=== PATIENT | female | born 1945 | race Caucasian/White ===

== ENCOUNTER → 2019-03-29 11:50 | Outpatient (CLI) | payer MEDICARE, SELFPAY ==
[2019-03-29 13:40] LABS: 24HR. Urine Creatinine 1.16 g/24 HR (0.70-1.90)
[2019-03-29 13:41] LABS: 24HR. UA Prot. Total Volume 1725 mL; Urine Protein (24 Hour) < 6.0 mg/dL (<11.9)
[2019-03-29 14:22] LABS: Anion Gap 4 (5-15); BUN 40 mg/dL (7-18); BUN/Creat Ratio 21.1 RATIO (10-20); Calcium,Total 9.2 mg/dL (8.5-10.1); Chloride 102 mmol/L (98-107); EST Glomerular Filtration Rate 28 mL/min (>60); Est Glom Filt Rate - Afr Amer 33 mL/min (>60); Glucose 158 mg/dL (74-106); Potassium 5.2 mmol/L (3.5-5.1); Sodium Level 136 mmol/L (136-145)
[2019-03-29 14:25] LABS: Vitamin D,25 Hydroxy 46.5 ng/mL (29.95-100.01)
[2019-03-29 14:26] LABS: PTHIN 148.5 pg/mL (18.4-80.1)
[2019-03-30 16:08] LABS: PROEL- A/G Ratio 0.8 (0.7-1.7); PROEL- Albumin 2.9 g/dL (2.9-4.4); PROEL- Alpha-1 Globulin 0.3 g/dL (0.0-0.4); PROEL- Alpha-2 Globulin 0.8 g/dL (0.4-1.0); PROEL- Beta Globulin 1.3 g/dL (0.7-1.3); PROEL- Gamma Globulin 1.2 g/dL (0.4-1.8); PROEL- Globulin, Total 3.7 g/dL (2.2-3.9); PROEL- TOTAL PROTEIN 6.6 g/dL (6.0-8.5)
== END ==
PROVIDERS: Family Provider Preventive Medicine Occupational Medicine; PCP Preventive Medicine Occupational Medicine; Referring Provider Internal Medicine; Visit Provider Internal Medicine
DX: N18.3 Chronic kidney disease, stage 3 (moderate) (principal)
CPT/HCPCS: 36415; 80048; 81050; 82306; 82570; 83970; 84100; 84165

== ENCOUNTER → 2019-04-16 09:44 | Outpatient (CLI) | payer MEDICARE, SELFPAY ==
--- NOTE | 2019-04-16 09:47 | US_ITS ---
STUDY: RENAL ULTRASOUND - COMPLETE REASON FOR EXAM: Female, 73 years old. CKD STAGE 3 TECHNIQUE: Ultrasound evaluation of the kidneys was performed with real-time and static quiroga-scale imaging. COMPARISON: None. FINDINGS: RIGHT KIDNEY: Normal location of the right kidney, which is normal in size. The right kidney measures 9.5 x 6.2 x 4.8 cm. There is a normal cortex of the right kidney. The renal cortex measures 1.0 cm. There is no right renal mass or cyst. There are no right renal calculi. There is no right hydronephrosis. DISTAL RIGHT URETER: There is non-visualization of the distal right ureter. There is no demonstrated right ureterovesical junction calculus. There is no demonstrated right ureteral jet. LEFT KIDNEY: Normal location of the left kidney, which is normal in size. The left kidney measures 10.6 x 3.8 x 4.3 cm. There is a normal cortex of the left kidney. The renal cortex measures 1.3 cm. There is no left renal mass or cyst. There are no left renal calculi. There is no left hydronephrosis. DISTAL LEFT URETER: There is non-visualization of the distal left ureter. There is no demonstrated left ureterovesical junction calculus. There is a visualized left ureteral jet. BLADDER: The urinary bladder is not fully distended. There is diffuse thickening of urinary bladder wall, nonspecific given the decompression. There is no demonstrated mass within the urinary bladder. There are no demonstrated bladder calculi. US/Kidney and Bladder IMPRESSION: Normal ultrasound of the kidneys. Decompressed urinary bladder with thickening of the wall, nonspecific. Cannot exclude cystitis, correlation with urinalysis recommended if clinically indicated. Incidental note is made of enlarged endometrium up 21.1 mm concerning for endometrial neoplasm given patient''s age. Further characterization with ultrasound of the pelvis along with [employer] consultation recommended.. Electronically Signed: Janice Haywood MD at 1:34 EST , Service support ,
== END ==
PROVIDERS: PCP Preventive Medicine Occupational Medicine; Referring Provider Internal Medicine; Visit Provider Internal Medicine
DX: N18.3 Chronic kidney disease, stage 3 (moderate) (principal)
CPT/HCPCS: 76770

== ENCOUNTER → 2019-05-12 11:05 | Outpatient (CLI) | payer MEDICARE, SELFPAY ==
--- NOTE | 2019-05-12 11:10 | US_ITS ---
STUDY: ULTRASOUND OF THE FEMALE PELVIS - COMPLETE REASON FOR EXAM: Female, 73 years old. Postmenopausal bleeding LMP: Unknown. TECHNIQUE: Transvaginal TECHNICAL QUALITY: Adequate. COMPARISON: None. FINDINGS: The uterus is anteverted and is in a midline position. The uterus measures 6.2 x 3.8 x 4.5 cm. Normal uterine cervix. The endometrium measures 17.4 mm in thickness, and is hyperechoic. This is abnormal and needs biopsy for exclusion of endometrial carcinoma. There is no demonstrated endometrial mass. There are calcified uterine fibroids, largest measures 1.8 x 2.0 x 1.0 cm I.U.D. - The patient does not have an I.U.D. Both ovaries previously removed There is no fluid in the cul-de-sac. The bladder is sonographically normal US/Transvaginal Non- IMPRESSION: Abnormally thickened endometrium at 17.4 mm. This should be considered endometrial carcinoma until proven otherwise, biopsy recommended Multiple calcified small uterine fibroids Electronically Signed: Dhiraj Loya MD at 12:56 EST , Service support ,
== END ==
PROVIDERS: PCP Preventive Medicine Occupational Medicine; Referring Provider Preventive Medicine Occupational Medicine; Visit Provider Preventive Medicine Occupational Medicine
DX: N93.8 Other specified abnormal uterine and vaginal bleeding (principal)
CPT/HCPCS: 76830

== ENCOUNTER 2019-05-20 14:04 | Outpatient (RCR) | payer MEDICARE, SELFPAY | END 2019-05-22 23:59 | LOC: DC 14:04 | PROVIDERS: PCP Preventive Medicine Occupational Medicine; Visit Provider Internal Medicine Nephrology | DX: Z71.3 Dietary counseling and surveillance (principal); E11.22 Type 2 diabetes mellitus with diabetic chronic kidney disease; N18.3 Chronic kidney disease, stage 3 (moderate) | CPT/HCPCS: G0108 ==

== ENCOUNTER 2019-05-24 14:06 | Outpatient (RCR) | payer MEDICARE, SELFPAY | END 2019-06-22 23:59 | LOC: DC 14:06 | PROVIDERS: PCP Preventive Medicine Occupational Medicine; Visit Provider Internal Medicine Nephrology | DX: Z71.3 Dietary counseling and surveillance (principal); E11.22 Type 2 diabetes mellitus with diabetic chronic kidney disease; N18.3 Chronic kidney disease, stage 3 (moderate) | CPT/HCPCS: 97802 ==

== ENCOUNTER → 2019-06-02 10:05 | Outpatient (CLI) | payer MEDICARE, SELFPAY ==
[2019-06-02 11:03] LABS: Anion Gap 7 (5-15); BUN 40 mg/dL (7-18); BUN/Creat Ratio 20.3 RATIO (10-20); Calcium,Total 9.6 mg/dL (8.5-10.1); Chloride 106 mmol/L (98-107); Creatinine, Serum 1.97 mg/dL (0.55-1.02); EST Glomerular Filtration Rate 26 mL/min (>60); Est Glom Filt Rate - Afr Amer 32 mL/min (>60); Glucose 133 mg/dL (74-106); Phosphorus 4.1 mg/dL (2.5-4.9); Potassium 4.1 mmol/L (3.5-5.1); Sodium Level 140 mmol/L (136-145)
[2019-06-02 11:05] LABS: Vitamin D,25 Hydroxy 69.3 ng/mL
== END ==
PROVIDERS: PCP Preventive Medicine Occupational Medicine; Referring Provider Internal Medicine; Visit Provider Internal Medicine
DX: N18.3 Chronic kidney disease, stage 3 (moderate) (principal); N25.81 Secondary hyperparathyroidism of renal origin
CPT/HCPCS: 36415; 80048; 82306; 83970; 84100

== ENCOUNTER → 2019-06-03 16:23 | Outpatient (CLI) | payer MEDICARE, SELFPAY ==
[2019-06-03 17:07] LABS: Color, Urine Yellow (Yellow); Glucose, Dipstick Normal (Normal); Ketone-Dipstick Negative (Negative); Leukocyte Esterase-Dipstick Negative /ul (Negative); Nitrite-Dipstick Negative (Negative); Occult Blood-Urine Negative /ul (Negative); Protein-Dipstick Negative (Negative); Urine Bilirubin Dipstick Negative (Negative); Urine Clarity Clear (Clear); Urine Urobilinogen Normal (Normal)
[2019-06-03 17:15] LABS: Protein, Urine (Random) 12.7 mg/dL (<11.9); Protein:Creat Ratio 95 mg/g CRE (0-200)
== END ==
PROVIDERS: PCP Preventive Medicine Occupational Medicine; Visit Provider Internal Medicine
DX: N18.3 Chronic kidney disease, stage 3 (moderate) (principal); N25.81 Secondary hyperparathyroidism of renal origin
CPT/HCPCS: 81002; 82570; 84156

== ENCOUNTER 2019-08-12 06:55 | Day surgery (SDC) | payer MEDICARE, SELFPAY ==
--- NOTE | 2019-08-09 16:45 | PCM.HP.BLA ---
History and Physical Date of Admission: 08/09/19 HPI: The patient is a 73 year old female presenting for pre-operative visit. She is scheduled for?Hysteroscopy D&C?with polyp resection?for PMB and endometrial polyp on?08/12/2019. ??Procedure discussed along with risks, benefits and complications. ?Other alternatives discussed for management. Consent form signed??Yes.? PAST MEDICAL HISTORY PAST MEDICAL HISTORY Diagnosis Date ? Arthritis ? ? Diabetes (HCC) ? ? High cholesterol ? ? Hypertension ? ? Kidney disease, chronic, stage III (GFR 30-59 ml/min) (HCC) ? ? ? PAST SURGICAL HISTORY PAST SURGICAL HISTORY Procedure Laterality Date ? CATARACT EXTRACTION HX ? ? ? FINGER SURGERY HX ? ? ? OOPHORECTOMY PARTIAL OR TOTAL ? 08/1979 ? ? CURRENT MEDICATIONS Current Outpatient Medications Medication Sig Dispense Refill ? atenolol (TENORMIN) 50 mg tablet Take 50 mg by mouth once daily. ? ? ? ACCU-CHEK GREGORY PLUS TEST STRP test strip ? desvenlafaxine ER (PRISTIQ) 50 mg 24 hr tablet TAKE 1 TABLET BY MOUTH ONCE DAILY ON Friday AND FRIDAY ? ? ? furosemide (LASIX) 40 mg tablet Take 40 mg by mouth once daily. ? ? ? NOVOLOG MIX 70-30 U-100 INSULN 100 unit/mL (70-30) injection INJECT 5 UNITS SUBCUTANEOUSLY ONCE DAILY BEFORE A MEAL ? ? ? TOUJEO MAX U-300 SOLOSTAR 300 unit/mL (3 mL) inpn ? levothyroxine (SYNTHROID) 150 mcg tablet ? lisinopril (ZESTRIL, PRINIVIL) 20 mg tablet Take 20 mg by mouth once daily. ? ? ? VELTASSA 8.4 gram pwpk MIX 1 PACKET INTO WATER. DRINK PO D. TAKE 3 HOUR BEFORE OR 3 HOURS AFTER OTHER MEDICATION ? ? ? simvastatin (ZOCOR) 40 mg tablet Take 40 mg by mouth daily at bedtime. ? ? ? aspirin 81 mg chewable tablet Take 81 mg by mouth once daily. ? ? ? No current facility-administered medications for this visit.? ? ALLERGIES:?Amoxicillin; Nut - Unspecified ? PERSONAL HISTORY:? SOCIAL HISTORY Social History ? Tobacco Use ? Smoking status: Former Smoker ? Smokeless tobacco: Never Used Substance Use Topics ? Alcohol use: Not Currently ? Drug use: Never ? FAMILY HISTORY:? FAMILY HISTORY FAMILY HISTORY Problem Relation Age of Onset ? Cancer Son 36 ?stomach ? REVIEW OF SYMPTOMS: GENERAL: denies fevers or chills ENDOCRINOLOGY: has not been on steroids Cardiology : denies palpitations or chest pain Respiratory: denies SOB or cough Hematology: denies history of prolonged bleeding or easy bruising or VTE Allergy: Denies history of personal or family history of allergy to anesthesia ? ? PHYSICAL EXAMINATION: ? VITALS:?Blood pressure 136/68, pulse 64, resp. rate 16, height 5' 1 (1.549 m), weight 257 lb (116.6 kg). ? GENERAL:??The patient is well nourished, well hydrated in no acute distress. ?, The patient is oriented to time, place, and person. NECK:?Supple. No lynphadenopathy, normal thyroid, no thyromegaly. LUNGS:?Clear to auscultation bilaterally. no wheezes, rhonchi or rales HEART:?Regular rate and rhythm, Normal heart sounds and No murmurs or gallops ? IMPRESSION:?PMB, endometrial polyp ? PLAN:???The risks/benefits/alternatives and personal involved for the planned?hysteroscopy with dilation and curettage and polp resection?were reviewed with the patient. Her questions were answered to her satisfaction and she desires to proceed. ?Consent was signed. ?I reviewed with her postop instructions and expectations. ? ? I have reviewed and updated past medical and surgical history, medications and allergies. This h&P was performed in my office on 08/09/2019.
[2019-08-11 19:28] LABS: Probe Check PASS; SARS-COV-2 DNA by PCR Negative (Negative); Specimen Processing Control PASS
--- NOTE | 2019-08-12 | EMB_PTH ---
PATIENT: ISAEL ZAPIEN ROSEMARIE LOC: [facility] [place] U#:[id number] AGE/SX: 73/F ROOM: RE08/12/[address]: Dr. Kelli Awan MD : 1945 BED: DIS: 08/12/2019 SPEC #: [id number] RECD: 08/12/19 10:07 STATUS: ADRIEN MIRZA #: [id number] HIRAM: 08/12/19 00:[address]: Kelli Awan DEPT: SURGICAL PATHOLOGY RECD BY: Blaze Sofia ENTERED: 08/12/19 10:07 SP TYPE: ENDOM BX/C DESTINI DR: Dr. John Morfin, DO Tissues: Endometrium, NOS Procedures: Surgery Specimen Level IV HEADER OPERATION: Hysteroscopy, D & C Symphion PRE-OP DIAGNOSIS: PMB, endometrial polyp TISSUE SUBMITTED: Endometrial curettings MICROSCOPIC DIAGNOSIS Endometrial curettings: Simple cystic endometrial hyperplasia without atypia. Fragments of myometrium. See comment. SJ:nikos 08/13/19 COMMENT The specimen also shows multiple fragments of polyp with area of infarction may represent fragments of infarcted endometrial polyp. Numerous blood clots are also noted. Correlation with clinical findings and appropriate follow up are necessary. Case has been reviewed in consultation with Dr. Lovell who concurs with the above diagnosis. IDC:AM MICROSCOPIC DESCRIPTION Slides are reviewed. GROSS DESCRIPTION Received in fixative is one container labeled with the patient's name and designated endometrial curettings. The specimen consists of multiple fragments of pink hemorrhagic soft tissue that in aggregate measure 5 x 3 x 0.6 cm. The entire specimen is submitted in four cassettes. / LILLY:nikos 08/12/19 TC:5 CPT: 13099
[2019-08-12 07:20] LABS: Bedside Glucose 144 mg/dL (70-110)
[2019-08-12 07:27] VITALS: BP 141/77; PULSE 64; RESP 16; TEMP 36.4; O2SAT 99; BMI 48.9
[2019-08-12] MEDS: Lactated Ringers 1,000 ML 100 ML IV (07:43)
[2019-08-12 08:26] LABS: Hemoglobin 9.7 g/dL (12.0-15.0); Mean Corp Hgb Conc 30.3 g/dL (32-36); Mean Corpuscular Hgb 25.1 pg (27.0-32.0); Mean Corpuscular Volume 82.9 fL (81-99); Mean Platelet Vol. 9.1 fl (6.2-12.0); Platelet Count 215 K/mm3 (150-450); RBC Distribution Width CV 15.9 % (11.6-14.6); RBC Distribution Width SD 48.3 fl (35.1-43.9); Red Blood Count 3.86 M/mm3 (4.2-5.4); White Blood Count 8.2 K/mm3 (4.4-11.0)
[2019-08-12 08:39] LABS: Anion Gap 6 (5-15); BUN 39 mg/dL (7-18); BUN/Creat Ratio 19.7 RATIO (10-20); Calcium,Total 9.4 mg/dL (8.5-10.1); Chloride 108 mmol/L (98-107); Creatinine, Serum 1.98 mg/dL (0.55-1.02); EST Glomerular Filtration Rate 26 mL/min (>60); Est Glom Filt Rate - Afr Amer 32 mL/min (>60); Glucose 140 mg/dL (74-106); Potassium 4.7 mmol/L (3.5-5.1); Sodium Level 141 mmol/L (136-145)
--- NOTE | 2019-08-12 09:08 | DCINST_ITS ---
Discharge Diet: No Restrictions Discharge Activity: Return to Normal Activity, May Shower, May Take a Tub Bath - in 2 weeks. May shower in (days): 1 May resume sexual activity in: 2 weeks Call your doctor if your incision/area has: Sudden Increased Bleeding, Foul Smelling Discharge Call your doctor if you observe: Fever of 101 or Higher Allergies/Adverse Reactions: Allergies amoxicillin Allergy (Verified 08/12/19 07:22) PT UNSURE OF REACTION walnut Allergy (Verified 08/12/19 07:22) Rash Medications to take at Discharge Acetaminophen [Tylenol Arthritis] 650 mg PO PRN PRN 08/09/19 Aspirin [Aspir 81] 81 mg PO DAILY 08/09/19 Atenolol [Tenormin (beta shreya)] 50 mg PO DAILY 08/09/19 Bisacodyl [Dulcolax] 5 mg PO DAILY 08/09/19 Cholecalciferol (VIT D3) [Vitamin D3] 5,000 unit PO DAILY 08/09/19 Desvenlafaxine Succinate [Desvenlafaxine Succinate ER] 50 mg PO SUWEFR 08/09/19 Furosemide 40 mg PO DAILY 08/09/19 Insulin Aspart Protam & Aspart [Novolog Mix 70-30 Vial] 10 unit SQ BIDCM 08/09/19 Insulin Glargine,Hum.rec.anlog [Toujeo Max Solostar] 110 unit SQ LUNCH 08/09/19 L.acidoph,Paracasei, B.lactis [Probiotic] 1 ea PO DAILY 08/09/19 Levothyroxine [Synthroid] 150 mcg PO DAILY 08/09/19 Lisinopril 20 mg PO DAILY 08/09/19 Patiromer Calcium Sorbitex [Veltassa] 8.4 gm PO 1700 08/09/19 Simvastatin [Zocor] 40 mg PO QHS 08/09/19 Primary Care Physician: John Morfin DO [Primary Care Provider] - Test Results: Test results from this visit will be discussed in further detail at your follow- up appointment, if applicable. Please Follow Up With: Kelli Awan MD - [phone] When: postop visit- may be virtual in 2-4 weeks or as needed
--- NOTE | 2019-08-12 09:11 | OP.PCM_ITS ---
Report of Operation Date of Procedure: 08/12/19 Pre-Operative Diagnosis: PMB,. thickened endometrium Post-Operative Diagnosis: same + endometrial polyp Surgery/Procedure Performed:: Hysteroscopy D&C with polyp resection storm window installer: None Type of Anesthesia:: MAC/Supplemental/Local Anesthesiologist: Jay Potts Special Medications: none Specimen's removed: endometrial curettings Drains: none Estimated Blood Loss (mL): 10 Fluids Replaced: 800 cc Description of Procedure: The patient was taken to the OR where she was prepped and draped in dorsal lithotomy position. The weighted speculum was placed in the vagina and the anterior lip of the cervix was grasped with a single-tooth tenaculum. A paracervical block was administered with [1% lidocaine with 1-100,000 epinephrine solution]. The cervix was dilated serially with Hegar dilators. The symphion hysteroscope was placed into the uterine cavity and the below findings were noted. Bilateral tubal ostia [were] identified. We noticed that there was some necrotic polypoid appearing material protruding from the cervical loss was grasped with polyp forceps and removed. This was placed on itself and sent to pathology with endometrial curettings. Symphion resection device was readied and inserted. Resection of the entire endometrial polyp and a visual D&C was done of the endometrial cavity. It should be noted that the endometrial cavity appeared studded but not thickened. The instruments were removed from the vagina. The specimen was handed off and sent to pathology. All sponge and needle counts were correct. Vaginal sweep was performed by me. The patient was awakened and taken to the recovery room in stable condition. Hysteroscopic fluid deficit was calculated to be 350 cc of normal saline Paintings: Normal-appearing cervix and vagina. Endometrial cavity with large amount of polypoid material. Endometrial cavity along the anterior and posterior uterine fundus appeared studded. Small calcified lesion on the right. Mid fundus. Grafts/Implants Used: none - Complications none - Admit VTE Documentation VTE Present on Admission: No VTE Mechan Device Prophylaxis: SCD's VTE Pharm Prophylaxis ordered?: No Reason prophylaxis not ordered:: Procedure Not Indicated
[2019-08-12 09:12] VITALS: BP 123/59; BP 141/77; PULSE 69; RESP 16; TEMP 37.1; O2SAT 96
[2019-08-12 09:17] VITALS: BP 134/58; BP 141/77; PULSE 72; RESP 16; O2SAT 98
[2019-08-12 09:22] VITALS: BP 141/77; BP 152/59; PULSE 66; RESP 16; O2SAT 97
[2019-08-12 09:27] VITALS: BP 141/77; BP 144/64; PULSE 64; RESP 16; TEMP 36.7; O2SAT 97
[2019-08-12 10:22] VITALS: BP 141/77
== END 2019-08-12 10:24 | disposition home or self-care (01) ==
LOC: SDC 06:57 → AC 06:57
PROVIDERS: Anesthesiology; PCP Preventive Medicine Occupational Medicine; Referring Provider Obstetrics & Gynecology; Visit Provider Obstetrics & Gynecology
PROC: 0UB98ZZ Excision of Uterus, Via Natural or Artificial Opening Endoscopic (ICD-10-PCS; CPT 58558; principal; 2019-08-12 08:15)
DX: N85.01 Benign endometrial hyperplasia (principal); N95.0 Postmenopausal bleeding; E11.22 Type 2 diabetes mellitus with diabetic chronic kidney disease; I12.9 Hypertensive chronic kidney disease with stage 1 through stage 4 chronic kidney disease, or unspecified chronic kidney disease; N18.3 Chronic kidney disease, stage 3 (moderate); E78.00 Pure hypercholesterolemia, unspecified; M19.90 Unspecified osteoarthritis, unspecified site; Z79.82 Long term (current) use of aspirin; Z79.4 Long term (current) use of insulin; Z79.899 Other long term (current) drug therapy; Z88.0 Allergy status to penicillin; Z87.891 Personal history of nicotine dependence; Z11.59 Encounter for screening for other viral diseases
CPT/HCPCS: 58558; 80048; 82962; 85027; 87635; 88305; C9803; G2023; J7120; J2405; U0004

== ENCOUNTER → 2019-10-07 11:42 | Outpatient (CLI) | payer MEDICARE, SELFPAY ==
[2019-10-07 12:44] LABS: Mucous, Urine 0 SEEN /hpf (<or=2+); Red Blood Cells-Urine 0 SEEN /hpf (0-5)
[2019-10-07 13:44] LABS: Protein, Urine (Random) 8.5 mg/dL (<11.9); Protein:Creat Ratio 87 mg/g CRE (0-200)
[2019-10-07 14:02] LABS: Color, Urine Yellow (Yellow); Glucose, Dipstick Normal (Normal); Ketone-Dipstick Negative (Negative); Leukocyte Esterase-Dipstick Negative /ul (Negative); Nitrite-Dipstick Negative (Negative); Occult Blood-Urine Negative /ul (Negative); Protein-Dipstick Negative (Negative); Urine Bilirubin Dipstick Negative (Negative); Urine Clarity Clear (Clear); Urine Urobilinogen Normal (Normal)
[2019-10-07 14:15] LABS: Anion Gap 2 (5-15); BUN 31 mg/dL (7-18); BUN/Creat Ratio 20.3 RATIO (10-20); Calcium,Total 9.1 mg/dL (8.5-10.1); Chloride 111 mmol/L (98-107); Creatinine, Serum 1.53 mg/dL (0.55-1.02); EST Glomerular Filtration Rate 35 mL/min (>60); Est Glom Filt Rate - Afr Amer 43 mL/min (>60); Glucose 115 mg/dL (74-106); Phosphorus 4.1 mg/dL (2.5-4.9); Potassium 4.7 mmol/L (3.5-5.1); Sodium Level 141 mmol/L (136-145)
[2019-10-07 14:16] LABS: Vitamin D,25 Hydroxy 58.6 ng/mL
[2019-10-07 14:23] LABS: Squamous Epithelial Cells - UA 0-5 SEEN /hpf (5-10); White Blood Cells 0-5 SEEN /hpf (0-5)
[2019-10-07 14:24] LABS: Bacteria 1+ /hpf (None Seen)
== END ==
PROVIDERS: PCP Preventive Medicine Occupational Medicine; Referring Provider Internal Medicine; Visit Provider Internal Medicine
DX: N18.3 Chronic kidney disease, stage 3 (moderate) (principal); N25.81 Secondary hyperparathyroidism of renal origin
CPT/HCPCS: 36415; 80048; 81001; 82306; 82570; 83970; 84100; 84156

== ENCOUNTER → 2020-03-29 14:35 | Outpatient (CLI) | payer MEDICARE, SELFPAY ==
[2020-03-29 14:52] LABS: Bacteria 0 SEEN /hpf (None Seen); Mucous, Urine 0 SEEN /hpf (<or=2+); Red Blood Cells-Urine 0 SEEN /hpf (0-5)
[2020-03-29 16:21] LABS: Anion Gap 3 (5-15); BUN 28 mg/dL (7-18); BUN/Creat Ratio 17.3 RATIO (10-20); Calcium,Total 9.5 mg/dL (8.5-10.1); Chloride 107 mmol/L (98-107); Creatinine, Serum 1.62 mg/dL (0.55-1.02); EST Glomerular Filtration Rate 33 mL/min (>60); Est Glom Filt Rate - Afr Amer 40 mL/min (>60); Glucose 135 mg/dL (74-106); Phosphorus 3.8 mg/dL (2.5-4.9); Potassium 4.8 mmol/L (3.5-5.1); Protein, Urine (Random) < 6.0 mg/dL (<11.9); Sodium Level 138 mmol/L (136-145)
[2020-03-29 16:24] LABS: Color, Urine Yellow (Yellow); Glucose, Dipstick Normal (Normal); Ketone-Dipstick Negative (Negative); Leukocyte Esterase-Dipstick 25 /ul (Negative); Nitrite-Dipstick Negative (Negative); Occult Blood-Urine Negative /ul (Negative); Protein-Dipstick Negative (Negative); Urine Bilirubin Dipstick Negative (Negative); Urine Clarity Clear (Clear); Urine Urobilinogen Normal (Normal)
[2020-03-29 16:27] LABS: Vitamin D,25 Hydroxy 48.6 ng/mL
[2020-03-29 16:47] LABS: Squamous Epithelial Cells - UA 0-5 SEEN /hpf (5-10); White Blood Cells 0-5 SEEN /hpf (0-5)
[2020-03-30 09:06] LABS: PTHIN 96.1 pg/mL (18.4-80.1)
== END ==
PROVIDERS: PCP Preventive Medicine Occupational Medicine; Referring Provider Internal Medicine; Visit Provider Internal Medicine
DX: N18.30 Chronic kidney disease, stage 3 unspecified (principal); N25.81 Secondary hyperparathyroidism of renal origin
CPT/HCPCS: 36415; 80048; 81001; 82306; 82570; 83970; 84100; 84156

== ENCOUNTER → 2020-06-05 10:38 | Outpatient (CLI) | payer MEDICARE, SELFPAY ==
[2020-06-05 12:01] LABS: Anion Gap 3 (5-15); BUN 30 mg/dL (7-18); BUN/Creat Ratio 22.9 RATIO (10-20); Calcium,Total 9.4 mg/dL (8.5-10.1); Chloride 105 mmol/L (98-107); Creatinine, Serum 1.31 mg/dL (0.55-1.02); EST Glomerular Filtration Rate 42 mL/min (>60); Est Glom Filt Rate - Afr Amer 51 mL/min (>60); Glucose 134 mg/dL (74-106); Potassium 4.3 mmol/L (3.5-5.1); Sodium Level 140 mmol/L (136-145)
== END ==
PROVIDERS: PCP Preventive Medicine Occupational Medicine; Referring Provider Internal Medicine; Visit Provider Internal Medicine
DX: E87.5 Hyperkalemia (principal)
CPT/HCPCS: 36415; 80048

== ENCOUNTER 2020-08-11 10:05 | Outpatient (RCR) | payer MEDICARE, SELFPAY ==
--- NOTE | 2020-08-11 10:39 | HP.PTEVAL ---
Patient's Visit Information ISAEL ZAPIEN is a 74 year old F referred to Physical Therapy by Dr. John Morfin DO with a diagnosis of vertigo. Date of Evaluation: 08/11/20 Physical Therapist: Estevan Palomares, TARAT, OCS, CSCS - Visit Plan Frequency: 1x/Week Duration: 2-4 Weeks Plan: weeklya s needed for positional treatments, check HD next session. - Subjective Dizzy 8 years ago and fixed here in one session. It came back a couple months ago gently. Can control it with limited movement. Can get dizzy lying down in bed or if moves head too quick and eyes will go wonky and it lasts 30 seconds. Not much effects in between episodes. Has OA and due to her age she does not move quick. Sleep is normal. Retired. Basic ADLs are going OK and getting done. Hard to put groceries away looking up.Has to be careful. lives with her. She has no falls lately. Has rollator that she uses at home, doesn't need it out but uses cart due to OA in knees. - Objective Walks I and safely withotu AD into adn out of PT. Cervical aROM WFL adn painfree. Pt c/o back and knee pain as she moves today. - R halpike mariya. + L hallpike mariya test for up torsional nystagmus of 5 seconds. Treated with L cali adn then - HD. - Goals Goal 1:: abolish vertigo with head movements and turning in bed. Goal Time Frame: 2-4 Weeks Goal 2:: Pt feel 100% back to normal dizzy beltran. Goal Time Frame: 2-4 Weeks - Rehabilitation Potential Physical Therapy Diagnosis: BPPV L post canal and resulting dizzyness. Rehabilitation Potential: Good - Anticipated Interventions Patient/Client Instruction: Educate patient on: Condition For the Purpose of:: To increase tolerance to activity/condition/position Comment: positional treatments. For the Purpose of:: To increase tolerance to activity/condition/position Thank you for the opportunity to evaluate your patient. For Medicare and Medicare HMO plans, please review the plan of care and approve it. It will need to be FAXED BACK to us at [phone] for Medicare purposes. For Medicare only, by signing this I certify the plan of care. Please let me know if there are questions or concerns regarding this plan of care. Physician Signature: Date:
--- NOTE | 2020-10-17 12:24 | HP.PT.NRP ---
ISAEL ZAPIEN was seen in my office for initial evaluation on 08/11/20. The following Plan of Care was established for this patient: Initial Frequency: 1x/Week Initial Duration: 2-4 Weeks Patient/Client Instruction: Educate patient on: Condition For the Purpose of:: To increase tolerance to activity/condition/position For the Purpose of:: To increase tolerance to activity/condition/position This patient was last seen in our office 08/11/20. Pertinent comments regarding their Physical therapy will appear below: Pt seen for initial evaluation and treated with positional treatment adn was to f/u per POC. They cancelled that second visit and neglected to reschedule. at this point, it has been over two months and I will discontinue due to nonattendance. At this point I will be discontinuing this patient from physical therapy. I would be happy to see this patient again in the future if found appropriate by the physician. Thank you! Estevan Palomares, DPT, OCS, CSCS Balance/Gait/Functional tests - Balance/Special Test Scores Dizziness Score: 30
== END 2020-08-11 19:00 | disposition home or self-care (01) ==
LOC: PT 10:05
PROVIDERS: PCP Preventive Medicine Occupational Medicine; Referring Provider Preventive Medicine Occupational Medicine; Visit Provider Preventive Medicine Occupational Medicine
DX: R42 Dizziness and giddiness (principal)
CPT/HCPCS: 97161

== ENCOUNTER → 2020-10-10 16:00 | Outpatient (CLI) | payer MEDICARE, SELFPAY ==
[2020-10-10 17:28] LABS: Anion Gap 6 (5-15); BUN 28 mg/dL (7-18); BUN/Creat Ratio 18.5 RATIO (10-20); Calcium,Total 9.5 mg/dL (8.5-10.1); Chloride 106 mmol/L (98-107); Creatinine, Serum 1.51 mg/dL (0.55-1.02); EST Glomerular Filtration Rate 36 mL/min (>60); Est Glom Filt Rate - Afr Amer 43 mL/min (>60); Glucose 212 mg/dL (74-106); Phosphorus 3.4 mg/dL (2.5-4.9); Potassium 4.6 mmol/L (3.5-5.1); Sodium Level 139 mmol/L (136-145)
[2020-10-10 17:30] LABS: PTHIN 120.1 pg/mL (18.4-80.1)
[2020-10-10 17:34] LABS: Vitamin D,25 Hydroxy 47.6 ng/mL
== END ==
PROVIDERS: PCP Preventive Medicine Occupational Medicine; Referring Provider Internal Medicine; Visit Provider Internal Medicine
DX: N18.32 Chronic kidney disease, stage 3b (principal); N25.81 Secondary hyperparathyroidism of renal origin
CPT/HCPCS: 36415; 80048; 82306; 83970; 84100

== ENCOUNTER → 2020-10-11 | Outpatient (CLI) | payer MEDICARE, SELFPAY ==
[2020-10-11 16:39] LABS: Mucous, Urine 0 SEEN /hpf (<or=2+); Red Blood Cells-Urine 0 SEEN /hpf (0-5); White Blood Cells 0 SEEN /hpf (0-5)
[2020-10-11 17:07] LABS: Color, Urine Straw (Yellow); Glucose, Dipstick Normal (Normal); Ketone-Dipstick Negative (Negative); Leukocyte Esterase-Dipstick 25 /ul (Negative); Nitrite-Dipstick Negative (Negative); Occult Blood-Urine Negative /ul (Negative); Protein-Dipstick Negative (Negative); Urine Bilirubin Dipstick Negative (Negative); Urine Clarity Clear (Clear); Urine Urobilinogen Normal (Normal)
[2020-10-11 17:14] LABS: Bacteria RARE /hpf (None Seen); Squamous Epithelial Cells - UA 0-5 SEEN /hpf (5-10)
[2020-10-11 17:21] LABS: Protein, Urine (Random) < 6.0 mg/dL (<11.9)
== END | disposition home or self-care (01) ==
LOC: LABSPEC 16:24
PROVIDERS: PCP Preventive Medicine Occupational Medicine; Visit Provider Internal Medicine
DX: N18.32 Chronic kidney disease, stage 3b (principal); N25.81 Secondary hyperparathyroidism of renal origin
CPT/HCPCS: 81001; 82570; 84156

== ENCOUNTER → 2021-03-22 16:32 | Outpatient (CLI) | payer MEDICARE, SELFPAY ==
[2021-03-22 17:24] LABS: ALB/GLOB Ratio 0.7 RATIO (0.9-2.4); AST(SGOT) 28 U/L (15-37); Alanine Aminotransfer ALT/SGPT 37 U/L (13-56); Alkaline Phosphatase 93 U/L (45-117); Anion Gap 6 (5-15); BUN 20 mg/dL (7-18); BUN/Creat Ratio 11.9 RATIO (10-20); Calcium,Total 9.6 mg/dL (8.5-10.1); Chloride 105 mmol/L (98-107); Creatinine, Serum 1.68 mg/dL (0.55-1.02); EST Glomerular Filtration Rate 32 mL/min (>60); Est Glom Filt Rate - Afr Amer 38 mL/min (>60); Globulin 4.3 g/dL (2.2-4.2); Glucose 160 mg/dL (74-106); Potassium 4.8 mmol/L (3.5-5.1); Protein, Total 7.3 g/dL (6.4-8.2); Sodium Level 140 mmol/L (136-145)
[2021-03-22 17:25] LABS: Protein, Urine (Random) 23.3 mg/dL (<11.9); Protein:Creat Ratio 170 mg/g CRE (0-200)
== END ==
PROVIDERS: PCP Preventive Medicine Occupational Medicine; Visit Provider Internal Medicine Nephrology
DX: N18.32 Chronic kidney disease, stage 3b (principal)
CPT/HCPCS: 36415; 80053; 82570; 84156

== ENCOUNTER → 2021-10-17 | Outpatient (CLI) | payer MEDICARE, SELFPAY ==
[2021-10-17 17:39] LABS: Hematocrit 36.8 % (37-47); Hemoglobin 11.2 g/dL (12.0-15.0); Mean Corp Hgb Conc 30.4 g/dL (32-36); Mean Corpuscular Hgb 26.7 pg (27.0-32.0); Mean Corpuscular Volume 87.8 fL (81-99); Platelet Count 223 K/mm3 (150-450); RBC Distribution Width CV 14.6 % (11.6-14.6); RBC Distribution Width SD 46.9 fl (35.1-43.9); Red Blood Count 4.19 M/mm3 (4.2-5.4); White Blood Count 9.3 K/mm3 (4.4-11.0)
[2021-10-17 18:01] LABS: Albumin, Serum 3.2 g/dL (3.2-5.0); BUN 36 mg/dL (7-18); BUN/Creat Ratio 18.4 RATIO (10-20); Chloride 101 mmol/L (98-107); Creatinine, Serum 1.96 mg/dL (0.55-1.02); EST Glomerular Filtration Rate 26 mL/min (>60); Est Glom Filt Rate - Afr Amer 32 mL/min (>60); Glucose 353 mg/dL (74-106); Phosphorus 2.7 mg/dL (2.5-4.9); Potassium 4.7 mmol/L (3.5-5.1); Sodium Level 134 mmol/L (136-145)
[2021-10-17 18:02] LABS: PTHIN 186.6 pg/mL (18.4-80.1)
[2021-10-17 18:04] LABS: Vitamin D,25 Hydroxy 57.7 ng/mL
== END | disposition home or self-care (01) ==
PROVIDERS: PCP Preventive Medicine Occupational Medicine
DX: N18.32 Chronic kidney disease, stage 3b (principal)
CPT/HCPCS: 36415; 80069; 82306; 82570; 83970; 84156; 85027

== ENCOUNTER → 2021-10-18 | Outpatient (CLI) | payer MEDICARE, SELFPAY ==
[2021-10-18 18:27] LABS: Protein, Urine (Random) 7.1 mg/dL (<11.9); Protein:Creat Ratio 80 mg/g CRE (0-200)
== END | disposition home or self-care (01) ==
LOC: LABSPEC 16:32 → MTLAB 16:33
PROVIDERS: PCP Preventive Medicine Occupational Medicine
DX: N18.32 Chronic kidney disease, stage 3b (principal); N25.81 Secondary hyperparathyroidism of renal origin
CPT/HCPCS: 82570; 84156

== ENCOUNTER → 2022-04-18 | Outpatient (CLI) | payer MEDICARE, SELFPAY ==
[2022-04-18 18:08] LABS: Anion Gap 5 (5-15); BUN 29 mg/dL (7-18); BUN/Creat Ratio 14.1 RATIO (10-20); Chloride 102 mmol/L (98-107); Creatinine, Serum 2.05 mg/dL (0.55-1.02); EST Glomerular Filtration Rate 25 mL/min (>60); Est Glom Filt Rate - Afr Amer 30 mL/min (>60); Glucose 253 mg/dL (74-106); Potassium 4.4 mmol/L (3.5-5.1); Sodium Level 136 mmol/L (136-145)
== END | disposition home or self-care (01) ==
LOC: MTLAB 16:04
PROVIDERS: PCP Preventive Medicine Occupational Medicine; Referring Provider Internal Medicine Nephrology; Visit Provider Internal Medicine Nephrology
DX: N18.32 Chronic kidney disease, stage 3b (principal)
CPT/HCPCS: 36415; 80048

== ENCOUNTER → 2022-12-11 | Outpatient (CLI) | payer MEDICARE, SELFPAY ==
[2022-12-11 16:20] LABS: Hematocrit 38.3 % (37-47); Hemoglobin 11.3 g/dL (12.0-15.0); Mean Corp Hgb Conc 29.5 g/dL (32-36); Mean Corpuscular Hgb 24.8 pg (27.0-32.0); Mean Corpuscular Volume 84.2 fL (81-99); Mean Platelet Vol. 9.5 fl (6.2-12.0); Platelet Count 210 K/mm3 (150-450); RBC Distribution Width SD 48.8 fl (35.1-43.9); Red Blood Count 4.55 M/mm3 (4.2-5.4)
[2022-12-11 16:52] LABS: Albumin, Serum 3.1 g/dL (3.2-5.0); BUN 35 mg/dL (7-18); BUN/Creat Ratio 15.6 RATIO (10-20); Calcium,Total 10.4 mg/dL (8.5-10.1); Chloride 102 mmol/L (98-107); Creatinine, Serum 2.25 mg/dL (0.55-1.02); EST Glomerular Filtration Rate 22 mL/min (>60); Est Glom Filt Rate - Afr Amer 27 mL/min (>60); Glucose 547 mg/dL (74-106); Phosphorus 2.4 mg/dL (2.5-4.9); Potassium 5.2 mmol/L (3.5-5.1); Sodium Level 131 mmol/L (136-145)
[2022-12-12 08:18] LABS: PTHIN 138.9 pg/mL (18.4-80.1)
== END | disposition home or self-care (01) ==
PROVIDERS: PCP Preventive Medicine Occupational Medicine; Visit Provider Internal Medicine Nephrology
DX: N18.32 Chronic kidney disease, stage 3b (principal); N25.81 Secondary hyperparathyroidism of renal origin
CPT/HCPCS: 36415; 80069; 82306; 83970; 85027

== ENCOUNTER → 2022-12-12 | Outpatient (CLI) | payer MEDICARE, SELFPAY ==
[2022-12-12 17:32] LABS: Protein, Urine (Random) 19.6 mg/dL (<11.9); Protein:Creat Ratio 194 mg/g CRE (0-200)
== END | disposition home or self-care (01) ==
PROVIDERS: PCP Preventive Medicine Occupational Medicine; Referring Provider Internal Medicine Nephrology; Visit Provider Internal Medicine Nephrology
DX: N18.32 Chronic kidney disease, stage 3b (principal); N25.81 Secondary hyperparathyroidism of renal origin
CPT/HCPCS: 82570; 84156

== ENCOUNTER 2022-12-28 20:09 | Emergency (ER) | payer MEDICARE, SELFPAY ==
[2022-12-28 20:09] VITALS: BP 134/79; PULSE 47; RESP 15; TEMP 36.4; O2SAT 100
--- NOTE | 2022-12-28 20:34 | EX.ED.DYSGE1 ---
HPI History of Present Illness Chief Complaint: Constipation Narrative Narrative: Patient presents with constipation for a little over a week. She feels a big ball of poop in her rectum she describes it as a softball feeling in her rectum. She has no abdominal pain. She has no fevers or chills she has no nausea or vomiting. [facility] Home Medications L.acidoph, paracasei,B. lactis 10 billion cell capsule 1 ea PO DAILY supplement 08/09/19 [History Last Taken Unknown] acetaminophen 650 mg tablet,extended release 650 mg PO PRN PRN Pain Or Fever 08/09/19 [History Last Taken Unknown] aspirin 81 mg tablet,delayed release 81 mg PO DAILY heart health 08/09/19 [History Last Taken Unknown] atenolol 50 mg tablet 50 mg PO DAILY htn 08/09/19 [History Last Taken Unknown] bisacodyl 5 mg tablet,delayed release 5 mg PO DAILY constipation 08/09/19 [History Last Taken Unknown] cholecalciferol (vitamin D3) 25 mcg (1,000 unit) tablet 5,000 unit PO DAILY supplement 08/09/19 [History Last Taken Unknown] desvenlafaxine succinate 50 mg tablet,extended release 24 hr 50 mg PO SUWEFR mood 08/09/19 [History Last Taken Unknown] furosemide 40 mg tablet 40 mg PO DAILY 08/09/19 [History Last Taken Unknown] insulin aspar prt-insulin aspart 100 unit/mL (70-30) subcutaneous soln 10 unit SQ BIDCM diabetes 08/09/19 [History Last Taken Unknown] insulin glargine U-300 conc 300 unit/mL (3 mL) subcutaneous pen 110 unit SQ LUNCH diabetes 08/09/19 [History Last Taken Unknown] levothyroxine 150 mcg tablet 150 mcg PO DAILY thyroid 08/09/19 [History Last Taken Unknown] lisinopril 20 mg tablet 20 mg PO DAILY htn 08/09/19 [History Last Taken Unknown] patiromer calcium sorbitex 8.4 gram oral powder packet 8.4 gm PO 1700 excess potassium 08/09/19 [History Last Taken Unknown] simvastatin 40 mg tablet 40 mg PO QHS cholesterol 08/09/19 [History Last Taken Unknown] polyethylene glycol 3350 17 gram/dose oral powder (Miralax) 17 g PO TID #119 grams 12/28/22 [Rx Last Taken Unknown] Allergy/AdvReac Type Severity Reaction Status Date / Time amoxicillin Allergy PT UNSURE Verified 12/28/22 20:14 OF REACTION walnut Allergy Rash Verified 12/28/22 20:14 Social History Smoking Status: Former smoker ROS ROS ED ROS Narrative Past medical history: Reviewed Medications: Reviewed, she is not on any opiates Social history: Noncontributory Review of systems: General: No fevers Cardiovascular: No chest pain Respiratory: No shortness of breath or cough Gastrointestinal: No abdominal pain, nausea or vomiting. Constipation as in HPI Genitourinary: No dysuria Musculoskeletal: Denies myalgias no difficulty with ambulation Skin: No rash EXAM Physical Exam Narrative Exam Narrative: Physical exam General: Well nourished, Well developed, No Acute Distress Cardiovascular: Regular rate, Regular rhythm Respiratory: No distress, CTA bilaterally Abdomen: Soft, Nontender, Nondistended Rectal: Significant stool impaction. Back: Nontender, Normal Inspection. Negative for: CVA tenderness Extremities: Nontender, No edema Const Vital Signs: 12/28/22 20:09 Temperature 97.6 F L Temperature Source Temporal Pulse Rate 47 L Respiratory Rate 15 Blood Pressure 134/79 H Blood Pressure Mean 97 Pulse Ox 100 Oxygen Delivery Method Room Air MDM MDM MDM Narrative Medical decision making narrative: Patient was manually disimpacted by me, significant stool was removed and she feels much better. She still has some stool left therefore I will give her an enema, otherwise I will discharge her in stable condition with MiraLAX. I do not believe any imaging is needed. I do not believe any blood work is needed. She is significantly improved and I will discharge her. Discharge Plan Triage Chief Complaint: Constipation ED Provider: Nikita Guillen Dx/Rx/DC Orders Clinical Impression: Fecal impaction, Constipation Instructions: Treating Constipation Prescriptions: New polyethylene glycol 3350 [Miralax] 17 gram/dose powder 17 g PO TID Qty: 119 0RF No Action furosemide 40 MG tablet 40 mg PO DAILY lisinopril 20 MG tablet 20 mg PO DAILY aspirin 81 MG tablet,delayed release (DR/EC) 81 mg PO DAILY simvastatin 40 MG tablet 40 mg PO QHS levothyroxine 150 MCG tablet 150 mcg PO DAILY Patient Comments: takes extra half of pill MO TH atenolol 50 MG tablet 50 mg PO DAILY insulin asp prt-insulin aspart 100 UNIT/ML solution 10 unit SQ BIDCM cholecalciferol (vitamin D3) 1,000 UNIT tablet 5,000 unit PO DAILY desvenlafaxine succinate 50 MG tablet extended release 24 hr 50 mg PO jackelyn Chua B. lactis 1 EACH capsule 1 ea PO DAILY patiromer calcium sorbitex 8.4 GM powder in packet 8.4 gm PO 1700 insulin glargine U-300 conc 300 UNIT/ML insulin pen 110 unit SQ LUNCH acetaminophen 650 MG tablet extended release 650 mg PO PRN PRN (Reason: Pain Or Fever) bisacodyl 5 MG tablet 5 mg PO DAILY Primary Care Provider: John Morfin Referrals: John Morfin DO [Primary Care Provider] - 3-5 Days Disposition Disposition: Home, Self Care
[2022-12-28 21:44] VITALS: BP 143/70; PULSE 53; RESP 18; O2SAT 96
== END 2022-12-28 21:45 | disposition home or self-care (01) ==
LOC: ED 20:50
PROVIDERS: Emergency Provider Emergency Medicine; PCP Preventive Medicine Occupational Medicine; Visit Provider Emergency Medicine
DX: K56.41 Fecal impaction (principal); Z79.4 Long term (current) use of insulin; Z79.82 Long term (current) use of aspirin; Z79.899 Other long term (current) drug therapy; Z87.891 Personal history of nicotine dependence
CPT/HCPCS: 99284

== ENCOUNTER → 2023-04-23 | Outpatient (CLI) | payer MEDICARE, SELFPAY ==
[2023-04-23 18:14] LABS: Albumin, Serum 3.4 g/dL (3.2-5.0); BUN 44 mg/dL (7-18); BUN/Creat Ratio 20.2 RATIO (10-20); Calcium,Total 10.9 mg/dL (8.5-10.1); Chloride 105 mmol/L (98-107); Creatinine, Serum 2.18 mg/dL (0.55-1.02); EST Glomerular Filtration Rate 23 mL/min (>60); Est Glom Filt Rate - Afr Amer 28 mL/min (>60); Glucose 117 mg/dL (74-106); Phosphorus 3.5 mg/dL (2.5-4.9); Potassium 4.6 mmol/L (3.5-5.1); Sodium Level 137 mmol/L (136-145)
== END | disposition home or self-care (01) ==
LOC: LAB 15:18 → MTLAB 15:21
PROVIDERS: PCP Preventive Medicine Occupational Medicine; Referring Provider Internal Medicine Nephrology; Visit Provider Internal Medicine Nephrology
DX: N18.32 Chronic kidney disease, stage 3b (principal)
CPT/HCPCS: 36415; 80069

== ENCOUNTER → 2023-05-07 | Outpatient (CLI) | payer MEDICARE, SELFPAY ==
[2023-05-07 17:40] LABS: Hematocrit 38.9 % (37-47); Hemoglobin 11.2 g/dL (12.0-15.0); Mean Corp Hgb Conc 28.8 g/dL (32-36); Mean Corpuscular Hgb 25.2 pg (27.0-32.0); Mean Corpuscular Volume 87.6 fL (81-99); Mean Platelet Vol. 10.2 fl (6.2-12.0); Platelet Count 196 K/mm3 (150-450); RBC Distribution Width CV 14.6 % (11.6-14.6); Red Blood Count 4.44 M/mm3 (4.2-5.4); White Blood Count 8.5 K/mm3 (4.4-11.0)
[2023-05-07 17:59] LABS: ALB/GLOB Ratio 0.8 RATIO (0.9-2.4); AST(SGOT) 23 U/L (15-37); Alanine Aminotransfer ALT/SGPT 33 U/L (13-56); Albumin, Serum 3.4 g/dL (3.2-5.0); Alkaline Phosphatase 103 U/L (45-117); Anion Gap 3 (5-15); BUN 23 mg/dL (7-18); BUN/Creat Ratio 13.3 RATIO (10-20); Calcium,Total 10.8 mg/dL (8.5-10.1); Chloride 107 mmol/L (98-107); Cholesterol 146 mg/dL (200); Creatinine, Serum 1.73 mg/dL (0.55-1.02); EST Glomerular Filtration Rate 30 mL/min (>60); Est Glom Filt Rate - Afr Amer 37 mL/min (>60); Globulin 4.2 g/dL (2.2-4.2); Glucose 214 mg/dL (74-106); High Density Lipoprotein 61 mg/dL; Potassium 4.4 mmol/L (3.5-5.1); Protein, Total 7.6 g/dL (6.4-8.2); Sodium Level 140 mmol/L (136-145); Triglycerides 166 mg/dL; Very Low Density Lipoprotein 33 mg/dL (5-40)
--- OUTSIDE RECORDS SUMMARY | 2023-05-07 18:04 | XMS RPT_ITS | CCD ---
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 Name Role Phone MICAELA GONZALEZ DO Primary Care Physician [phone]) MICAELA GONZALEZ Attending Unavailable MICAELA GONZALEZ Primary Care Unavailable Allergies Allergy Classification Reported Allergen(s) Allergy Type Date of Onset Reaction(s) Facility (1 source) metFORMIN; Translations: [metformin] Drug Allergy 2 Diarrhea (finding) [facility] (1 source) Penicillin; Translations: [penicillin] Drug Allergy Rash [facility] Medications Current Medications Medication Drug Class(es) Dates Sig (Normalized) Sig (Original) ACCU-CHEK GUIDE MIS (1 source) Start: 12-29-2018 ACCU-CHEK GUIDE MIS ACCU-CHEK GUIDE MIS, 0 Refill(s) Start Date: 12/29/18 Status: Ordered aspirin 81 mg delayed release oral tablet (1 source) Platelet Aggregation Inhibitor, Nonsteroidal Anti-inflammatory Drug Start: 08-04-2019 Aspir-Low 81 mg oral delayed release tablet Dose : 81 mg = 1 tab(s), Oral, Daily, 0 Refill(s) Start Date: 08/04/19 Status: Ordered atenolol 50 mg oral tablet (1 source) beta-Adrenergic Kassy Start: 05-03-2021 atenolol 50 mg oral tablet Dose : 50 mg = 1 tab(s), Oral, qDay, # 90 tab(s), 3 Refill(s), Pharmacy: [facility], 156, cm, 12/26/20 13:43:00 EDT, Height, kg, 12/26/20 13:43:00 EDT, Dosing Weight Start Date: 05/03/21 Status: Ordered Cinnamon Preparation (1 source) Non-Standardized Food Allergenic Extract Start: 04-10-2020 take 1 mg by mouth twice daily cinnamon mg =, Oral, BID, 0 Refill(s) Start Date: 04/10/20 Status: Ordered desvenlafaxine 50 mg oral tablet (1 source) Serotonin and Norepinephrine Reuptake Inhibitor Start: 10-29-2021 take 1 tablet by mouth once daily desvenlafaxine (as succinate) 50 mg oral tablet, extended release See Instructions, Take 1 tablet daily on Friday,Friday, and Friday, # 36 tab(s), 3 Refill(s), Pharmacy: [facility], 156, cm, 05/21/21 11:08:00 EST, Height, kg, 05/21/21 11:08:00 EST, Dosing Weight Start Date: 10/29/21 Status: Ordered furosemide 40 mg oral tablet (1 source) Loop Diuretic Start: 10-05-2021 furosemide 40 mg oral tablet Dose : 40 mg = 1 tab(s), Oral, qDay, # 90 tab(s), 3 Refill(s), Pharmacy: [facility], 156, cm, 05/21/21 11:08:00 EST, Height, kg, 05/21/21 11:08:00 EST, Dosing Weight Start Date: 10/05/21 Status: Ordered 3 ml insulin glargine 300 unt/ml pen injector (1 source) Insulin Analog Start: 05-21-2021 End: 05-16-2022 inject 1 dose by subcutaneous injection twice daily Toularry Max SoloStar 300 units/mL subcutaneous solution Dose : 65 unit(s) =, Subcutaneous, BID, # 39 mL, 3 Refill(s), Pharmacy: [facility], 156, cm, 05/21/21 11:08:00 EST, Height, kg, 05/21/21 11:08:00 EST, Dosing Weight Start Date: 05/21/21 Stop Date: 05/16/22 Status: Ordered 3 ml insulin lispro 100 unt/ml pen injector (1 source) Insulin Analog Start: 12-11-2021 inject 1 dose by subcutaneous injection three times daily at mealtime HumaLOG KwikPen 100 units/mL injectable PEN Dose : 10 unit(s) =, Subcutaneous, TID, With each meal, # 27 mL, 3 Refill(s), 3 mL PEN, Pharmacy: [facility], Insulin dependent diabetes mellitus, 156, cm, 12/11/21 14:29:00 EDT, Height Start Date: 12/11/21 Status: Ordered levothyroxine sodium 0.15 mg oral tablet (1 source) l-Thyroxine Start: 11-28-2020 levothyroxine 150 mcg (0.15 mg) oral tablet See Instructions, TAKE 1 AND 1/2 TABLETS BY MOUTH ON FRIDAY AND FRIDAY. TAKE 1 TABLET BY MOUTH ON THE OTHER DAYS OF THE WEEK, # 100 tab(s), 3 Refill(s), Pharmacy: [facility], 156, cm, 09/11/20 13:14:00 EDT, Height, kg, 09/11/20 13:14:00... Start Date: 11/28/20 Status: Ordered lisinopril 20 mg oral tablet (1 source) Angiotensin Converting Enzyme Inhibitor Start: 09-11-2020 lisinopril 20 mg oral tablet Dose : 20 mg = 1 tab(s), Oral, qDay, # 90 tab(s), 3 Refill(s), Pharmacy: [facility], 156, cm, 09/11/20 13:14:00 EDT, Height, kg, 09/11/20 13:14:00 EDT, Dosing Weight Start Date: 09/11/20 Status: Ordered patiromer 8400 mg powder for oral suspension (1 source) Potassium Binder Start: 05-05-2019 Veltassa 8.4 g oral powder for reconstitution Dose : 8.4 gram(s) = 1 packet(s), Oral, qDayM, # 30 packet(s), 0 Refill(s) Start Date: 05/05/19 Status: Ordered simvastatin 40 mg oral tablet (1 source) HMG-CoA Reductase Inhibitor Start: 02-18-2020 simvastatin 40 mg oral tablet Dose : 40 mg = 1 tab(s), Oral, qHS, # 30 tab(s), 11 Refill(s), Pharmacy: [facility], 156, cm, 12/31/19 14:11:00 EDT, Height, kg, 12/31/19 14:11:00 EDT, Dosing Weight Start Date: 02/18/20 Status: Ordered Vitamin D3 5000 intl units (125 mcg) oral capsule (1 source) Start: 08-04-2019 Vitamin D3 5000 intl units (125 mcg) oral capsule Dose : 5,000 International_Unit = 1 cap(s), Oral, qDay, # 100 cap(s), 0 Refill(s) Start Date: 08/04/19 Status: Ordered Problems Problem Classification Problem Date Documented Da te Episodic/Chronic Conditions associated with dizziness or vertigo (1 source) Vertigo 12-29-2018 Episodic Diabetes mellitus without complication (2 sources) Diabetes mellitus; Translations: [Type 2 diabetes mellitus] 06-16-2019 Chronic Disorders of lipid metabolism (1 source) Hyperlipidemia 12-29-2018 Chronic Essential hypertension (1 source) Essential hypertension 12-29-2018 Chronic Fluid and electrolyte disorders (1 source) Hyperkalemia 05-21-2021 Episodic Mood disorders (1 source) Severe recurrent major depression without psychotic features 09-11-2020 Chronic Osteoarthritis (1 source) Osteoarthritis of joint of right hand 05-21-2021 Chronic Other bone disease and musculoskeletal deformities (1 source) Absent finger 05-21-2021 Episodic Other diseases of veins and lymphatics (1 source) Chronic acquired lymphedema 12-29-2018 Chronic Other gastrointestinal disorders (1 source) Chronic constipation 05-21-2021 Episodic Other nutritional; endocrine; and metabolic disorders (1 source) Body mass index 40+ - severely obese 09-11-2020 Chronic Residual codes; unclassified (1 source) Memory impairment 12-11-2021 Episodic Thyroid disorders (1 source) Hypothyroidism 12-29-2018 Chronic Results Test Name Value Interpretation Reference Range Facil ity Encounters Encounter Date Encounter Type Care Provider Facility Start: 12-11-2021 End: 12-12-2021 ambulatory MICAELA GONZALEZ Facility:B Start: 12-11-2021 End: 12-11-2021 Patient encounter procedure MICAELA GONZALEZ DO [facility] Procedures Date Procedure Procedure Detail Performing Clinician Appendectomy MICAELA GONZALEZ DO Oophorectomy MICAELA GONZALEZ DO Tonsillectomy MICAELA OSEISAY [facility] Immunizations Immunization Date Immunization Notes Care Provider [facility] 12-26-2020 influenza, high dose seasonal, preservative-free; Translations: [Fluad Quadrivalent PF ] MICAELA OSEISAY [facility] 06-07-2020 COVID-19, mRNA, LNP- S, PF, 100 mcg or 50 mcg dose; Translations: [facility]19 [facility]ine[facility] 05-10-2020 COVID-19, mRNA, LNP- S, PF, 100 mcg or 50 mcg dose; Translations: [Moderna COVID-19 Vaccine] [facility] Vacc[facility] 12-31-2019 influenza, injectabl e, quadrivalent, preservative free; Translations: [Fluarix PF Quadrivalent ] MICAELA OSEISAY [facility] 12-29-2018 pneumococcal conjuga te vaccine, 13 valent; Translations: [Prevnar 13] MICAELA OSEISAY [facility] 12-29-2018 Seasonal trivalent influenza vaccine, adjuvanted, preservative free; Translations: [Fluarix PF Quadrivalent ] MICAELA LISA DO [facility] 05-14-2017 influenza virus vacc ine, unspecified formulation MICAELA OSEISAY [facility] 01-03-2016 influenza virus vacc ine, unspecified formulation MICAELA OSEISAY DO [facility] 12-12-2014 influenza virus vacc ine, unspecified formulation MICAELA LISA DO [facility] 12-12-2014 zoster vaccine, live MICAELA GONZALEZ DO [facility] 12-03-2013 influenza virus vacc ine, unspecified formulation MICAELA OSEISAY DO [facility] 12-03-2013 pneumococcal polysaccharide vaccine, 23 valent MICAELA LIRAY DO [facility] 02-04-2012 influenza virus vacc ine, unspecified formulation MICAELA GONZALEZ DO [facility] 02-04-2012 pneumococcal polysaccharide vaccine, 23 valent MICAELA LIRAY DO [facility] Payers Date Payer Category Payer Unknown [id number] 1945 Unknown [id number] Social History Date Type Detail Facility Start: 12-29-2018 Tobacco smoking status Ex-smoker (fi fannying) [facility] Sex Assigned At Female [facility] Medical Equipment Procedure Code Equipment Code Equipment Origin al Text Equipment Identifier Dates See Instructions , # 100 unknown unit, USE ONCE DAILY, [facility] Start: 01-28-2019 See Instructions , Dispense Accu-Chek test strips, #200, use as directed to test blood sugar twice daily, # 200 EA, 3 Refill(s), Pharmacy: [facility], Diabetes, 158, cm, 05/05/19 9:09:00 EST, Height, 118.8, kg, 05/05/19 9:09:00 EST, Dosing W... Start: 05-05-2019 See Instructions , Dispense Accuchek glucose strips, #200, UAD twice daily to test BS, # 200 EA, 3 Refill(s), Pharmacy: [facility], Insulin dependent diabetes mellitus, 156, cm, 09/11/20 13:14:00 EDT, Height, 127.2, kg, 09/11/20 13:14:00 EDT... Start: 12-20-2020 See Instructions , BD Tanya UF pen needles 4 mm x 32G, #400, use 1 pen needle as directed QID to inject insulin. DX:E11.9, # 400 EA, 3 Refill(s), Pharmacy: [facility], 156, cm, 12/11/21 14:29:00 EDT, Height, 128.5, kg, 12/11/21 14:29:00 E... Start: 12-11-2021 See Instructions , Dispense 0.5 mL insulin syringes 32-gauge by 4 mm, #100, use as directed daily to inject insulin, # 100 EA, 3 Refill(s), Pharmacy: [facility], Diabetes, 158, cm, 05/05/19 9:09:00 EST, Height, 118.8, kg, 05/05/19 9:09:00 ES... Start: 05-05-2019 Clinical Note 05-16-2020 Note Date & Type Note Facility 05-16-2020 Note Patient Outreach ([facility]) ISAEL ZAPIEN ([id number]) 1945 F Date Time Provider Department 05/16/20 [facility] During your visit today, we recorded the following information about you: Allergies As of Date: 05/16/2020 Noted Allergy Reaction AMOXICILLIN 07/21/2019 16 - Unknown NUT - UNSPECIFIED 07/21/2019 2 - Rash Comments: walnuts Date Reviewed: 08/27/2019 Reviewed by: Kelli Awan - Fully Assessed Order(s):SARS-COVID VACCINE 1ST DOSE APPT [[id number]] Order #: [id number] FUTURE Prescriptions as of 05/16/2020 Sig: ATENOLOL 50 MG TABLET Take 50 mg by mouth once owen* ACCU-CHEK GREGORY PLUS TEST STR* DESVENLAFAXINE SUCCINATE ER 5* TAKE 1 TABLET BY MOUTH ONCE D* FUROSEMIDE 40 MG TABLET Take 40 mg by mouth once owen* NOVOLOG MIX 70-30 U-100 INSUL* INJECT 5 UNITS SUBCUTANEOUSLY* TOUJEO MAX U-300 SOLOSTAR 300* LEVOTHYROXINE 150 MCG TABLET LISINOPRIL 20 MG TABLET Take 20 mg by mouth once owen* VELTASSA 8.4 GRAM ORAL POWDER* MIX 1 PACKET INTO WATER. DRIN* SIMVASTATIN 40 MG TABLET Take 40 mg by mouth daily at * ASPIRIN 81 MG CHEWABLE TABLET Take 81 mg by mouth once owen* Problem List As Of Date: 05/16/2020 (None) Letter Text Encounter Status:Closed by JOEY ZHOU on 05/19/20 [facility] Evaluation + Plan note Laboratory Note Date & Type Note Facility Evaluation + Plan note Future Appointments Appointment Date:03/12/2022 02:30:00 PM Scheduled Provider:MICAELA GONZALEZ DO Location:[facility] Appointment Type: OV Diagnostic Tests PendingVitamin B12 Level 12/11/21 Future Scheduled TestsMicroalbumin Level Urine 12/11/21 [facility] Hospital course Narrative Note Date & Type Note Facility Hospital course Narrative No data available for this section [facility] Hospital Discharge instructions Note Date & Type Note Facility Hospital Discharge instructions No data available for this section [facility] Progress note Note Date & Type Note Facility Progress note No data available for this section [facility] Summary Purpose Family History No Family History Records FoundNo Family History Records Found Advance Directives No Advanced Directives Records FoundNo Advanced Directives Records Found Additional Source Comments INFORMATION SOURCE (unrecogn ized section and content) DATE CREATED AUTHOR AUTHOR'S ORGANIZ ATION 12/23/2021 [facility] ([place]) Care Team (unrecognized sect ion and content) Care Team Personnel Name: MICAELA GONZALEZ DO Position: P4 Physician - Primary Care Med Service: Active Provider Member Role: Primary Care Physician Address: Address: [address] [place] [id number] Care Team Related Persons Name: CAITLIN MARIE Name: ERICKA ZAPIEN Address: Home [address] [place] [address] [phone] FOR RECORDS PERTAINING TO PATIENTS WHO ARE OR HAVE BEEN ENROLLED IN A CHEMICAL DEPENDENCY/SUBSTANCEABUSE PROGRAM, SOME INFORMATION MAY BE OMITTED. This clinical summary was aggregated from multiple sources. Caution should be exercised in using it in the provision of clinical care. This summary normalizes information from multiple sources, and as a consequence, information in this document may materially change the coding, format and clinical context of patient data. In addition, data may be omitted in some cases. CLINICAL DECISIONS SHOULD BE BASED ON THE PRIMARY CLINICAL RECORDS. [facility] [employer] provides no warranty or guarantee of the accuracy or completeness of information in this document.
[2023-05-07 18:12] LABS: Microalbumin,Random Urine 33.6 mg/L (NO RANGE EST.); Microalbumin:Creatinine Ratio 31.1 mg/g CRE (<30 mg/g CRE)
== END | disposition home or self-care (01) ==
PROVIDERS: PCP Preventive Medicine Occupational Medicine; Referring Provider Preventive Medicine Occupational Medicine; Visit Provider Preventive Medicine Occupational Medicine
DX: I10 Essential (primary) hypertension (principal); E11.9 Type 2 diabetes mellitus without complications; E78.5 Hyperlipidemia, unspecified; E03.9 Hypothyroidism, unspecified
CPT/HCPCS: 36415; 80053; 80061; 82043; 82570; 84443; 85027

== ENCOUNTER → 2023-09-10 | Outpatient (CLI) | payer MEDICARE, SELFPAY ==
[2023-09-10 18:06] LABS: Hemoglobin 10.3 g/dL (12.0-15.0); Mean Corp Hgb Conc 28.6 g/dL (32-36); Mean Corpuscular Hgb 24.2 pg (27.0-32.0); Mean Corpuscular Volume 84.5 fL (81-99); Mean Platelet Vol. 10.3 fl (6.2-12.0); Platelet Count 219 K/mm3 (150-450); RBC Distribution Width CV 15.4 % (11.6-14.6); RBC Distribution Width SD 46.7 fl (35.1-43.9); Red Blood Count 4.26 M/mm3 (4.2-5.4); White Blood Count 9.5 K/mm3 (4.4-11.0)
[2023-09-10 18:34] LABS: Vitamin B12 > 2000 pg/mL (211-911)
[2023-09-10 18:37] LABS: ALB/GLOB Ratio 0.8 RATIO (0.9-2.4); AST(SGOT) 27 U/L (15-37); Alanine Aminotransfer ALT/SGPT 33 U/L (13-56); Albumin, Serum 3.3 g/dL (3.2-5.0); Alkaline Phosphatase 92 U/L (45-117); Anion Gap 6 (5-15); BUN 41 mg/dL (7-18); BUN/Creat Ratio 15.8 RATIO (10-20); Calcium,Total 10.7 mg/dL (8.5-10.1); Chloride 107 mmol/L (98-107); Cholesterol 116 mg/dL (200); EST Glomerular Filtration Rate 19 mL/min (>60); Est Glom Filt Rate - Afr Amer 23 mL/min (>60); Globulin 4.3 g/dL (2.2-4.2); Glucose 194 mg/dL (74-106); High Density Lipoprotein 59 mg/dL; Iron 28 ug/dL (50-170); Potassium 4.7 mmol/L (3.5-5.1); Protein, Total 7.6 g/dL (6.4-8.2); Sodium Level 141 mmol/L (136-145); Thyroid Stim Hormone (TSH) 1.69 uIU/mL (0.358-3.74); Triglycerides 115 mg/dL; Very Low Density Lipoprotein 23 mg/dL (5-40)
== END | disposition home or self-care (01) ==
LOC: MTLAB 14:03
PROVIDERS: PCP Preventive Medicine Occupational Medicine; Referring Provider Preventive Medicine Occupational Medicine; Visit Provider Preventive Medicine Occupational Medicine
DX: E11.9 Type 2 diabetes mellitus without complications (principal); E03.9 Hypothyroidism, unspecified; I10 Essential (primary) hypertension; E78.5 Hyperlipidemia, unspecified; E53.8 Deficiency of other specified B group vitamins; F50.89 Other specified eating disorder
CPT/HCPCS: 36415; 80053; 80061; 82043; 82570; 82607; 83540; 84443; 85027

== ENCOUNTER → 2023-10-22 | Outpatient (CLI) | payer MEDICARE, SELFPAY ==
[2023-10-22 18:02] LABS: Vitamin D,25 Hydroxy 39.2 ng/mL
[2023-10-22 18:05] LABS: Albumin, Serum 3.3 g/dL (3.2-5.0); BUN 28 mg/dL (7-18); BUN/Creat Ratio 14.8 RATIO (10-20); Calcium,Total 10.7 mg/dL (8.5-10.1); Chloride 105 mmol/L (98-107); Creatinine, Serum 1.89 mg/dL (0.55-1.02); EST Glomerular Filtration Rate 27 mL/min (>60); Est Glom Filt Rate - Afr Amer 33 mL/min (>60); Glucose 249 mg/dL (74-106); Phosphorus 2.9 mg/dL (2.5-4.9); Potassium 5.1 mmol/L (3.5-5.1); Sodium Level 138 mmol/L (136-145)
[2023-10-22 18:33] LABS: PTHIN 183.2 pg/mL (18.4-80.1)
[2023-10-24 14:10] LABS: Immunofixation Result, Serum Comment: (.); Immunoglobulin A 565 mg/dL (64-422); Immunoglobulin G 905 mg/dL (586-1602); Immunoglobulin M 87 mg/dL (26-217)
== END | disposition home or self-care (01) ==
LOC: MTLAB 14:41
PROVIDERS: PCP Preventive Medicine Occupational Medicine; Referring Provider Internal Medicine Nephrology; Visit Provider Internal Medicine Nephrology
DX: N18.32 Chronic kidney disease, stage 3b (principal)
CPT/HCPCS: 36415; 80069; 82306; 82784; 83970; 86334

== ENCOUNTER → 2023-11-17 | Outpatient (CLI) | payer MEDICARE, SELFPAY ==
[2023-11-17 18:46] LABS: Color, Urine Yellow (Yellow); Glucose, Dipstick 250 mg/dl (Normal); Ketone-Dipstick Negative (Negative); Leukocyte Esterase-Dipstick 25 /ul (Negative); Nitrite-Dipstick Negative (Negative); Occult Blood-Urine 10 /ul (Negative); Protein-Dipstick Negative (Negative); Specific Gravity, Urine 1.025 (1.002-1.030); Urine Bilirubin Dipstick Negative (Negative); Urine Clarity Sl. Cloudy (Clear); Urine Urobilinogen Normal (Normal)
== END | disposition home or self-care (01) ==
LOC: MTLAB 16:53
PROVIDERS: PCP Preventive Medicine Occupational Medicine; Referring Provider Preventive Medicine Occupational Medicine; Visit Provider Preventive Medicine Occupational Medicine
DX: R39.9 Unspecified symptoms and signs involving the genitourinary system (principal)
CPT/HCPCS: 81002; 87077; 87086; 87088; 87186

== ENCOUNTER → 2024-04-01 | Outpatient (CLI) | payer MEDICARE, SELFPAY ==
[2024-04-01 17:30] LABS: Hematocrit 42.7 % (37-47); Hemoglobin 13.2 g/dL (12.0-15.0); Mean Corp Hgb Conc 30.9 g/dL (32-36); Mean Corpuscular Hgb 28.6 pg (27.0-32.0); Mean Corpuscular Volume 92.6 fL (81-99); Mean Platelet Vol. 10.3 fl (6.2-12.0); Platelet Count 187 K/mm3 (150-450); RBC Distribution Width CV 14.2 % (11.6-14.6); RBC Distribution Width SD 48.1 fl (35.1-43.9); Red Blood Count 4.61 M/mm3 (4.2-5.4); White Blood Count 8.2 K/mm3 (4.4-11.0)
[2024-04-01 17:58] LABS: ALB/GLOB Ratio 0.8 RATIO (0.9-2.4); AST(SGOT) 30 U/L (15-37); Alanine Aminotransfer ALT/SGPT 30 U/L (13-56); Albumin, Serum 3.2 g/dL (3.2-5.0); Alkaline Phosphatase 96 U/L (45-117); Anion Gap 3 (5-15); BUN 27 mg/dL (7-18); BUN/Creat Ratio 12.8 RATIO (10-20); Calcium,Total 10.9 mg/dL (8.5-10.1); Chloride 103 mmol/L (98-107); Cholesterol 141 mg/dL (200); Creatinine, Serum 2.11 mg/dL (0.55-1.02); EST Glomerular Filtration Rate 24 mL/min (>60); Est Glom Filt Rate - Afr Amer 29 mL/min (>60); Ferritin 29 ng/mL (8-252); Globulin 3.9 g/dL (2.2-4.2); Glucose 256 mg/dL (74-106); High Density Lipoprotein 61 mg/dL; Iron 73 ug/dL (50-170); Potassium 4.4 mmol/L (3.5-5.1); Protein, Total 7.1 g/dL (6.4-8.2); Sodium Level 137 mmol/L (136-145); Triglycerides 196 mg/dL; Very Low Density Lipoprotein 39 mg/dL (5-40)
[2024-04-02 18:51] LABS: Microalbumin:Creatinine Ratio 98.2 mg/g CRE (<30 mg/g CRE)
== END | disposition home or self-care (01) ==
LOC: MTLAB 16:28
PROVIDERS: PCP Preventive Medicine Occupational Medicine; Referring Provider Preventive Medicine Occupational Medicine; Visit Provider Preventive Medicine Occupational Medicine
DX: D50.9 Iron deficiency anemia, unspecified (principal); E11.9 Type 2 diabetes mellitus without complications; I10 Essential (primary) hypertension; E78.5 Hyperlipidemia, unspecified; E03.9 Hypothyroidism, unspecified
CPT/HCPCS: 36415; 80053; 80061; 82043; 82570; 82728; 83540; 84443; 85027

== ENCOUNTER → 2024-04-02 | Outpatient (CLI) | payer MEDICARE, SELFPAY | END | disposition home or self-care (01) | LOC: MTLAB 16:30 | PROVIDERS: PCP Preventive Medicine Occupational Medicine; Referring Provider Preventive Medicine Occupational Medicine; Visit Provider Preventive Medicine Occupational Medicine | DX: I10 Essential (primary) hypertension (principal) ==

== ENCOUNTER → 2024-06-16 | Outpatient (CLI) | payer MEDICARE, SELFPAY ==
[2024-06-16 17:51] LABS: Hematocrit 40.4 % (37-47); Hemoglobin 12.3 g/dL (12.0-15.0); Mean Corp Hgb Conc 30.4 g/dL (32-36); Mean Corpuscular Hgb 28.8 pg (27.0-32.0); Mean Corpuscular Volume 94.6 fL (81-99); Mean Platelet Vol. 10.1 fl (6.2-12.0); Platelet Count 168 K/mm3 (150-450); RBC Distribution Width CV 13.2 % (11.6-14.6); RBC Distribution Width SD 46.1 fl (35.1-43.9); Red Blood Count 4.27 M/mm3 (4.2-5.4); White Blood Count 7.4 K/mm3 (4.4-11.0)
[2024-06-16 19:01] LABS: Microalbumin,Random Urine 73.4 mg/L (NO RANGE EST.); Microalbumin:Creatinine Ratio 832.2 mg/g CRE
[2024-06-16 20:25] LABS: Albumin, Serum 3.6 g/dL (3.4-4.8); Anion Gap 10 (5-15); BUN 17 mg/dL (4-19); Calcium,Total 10.9 mg/dL (7.6-11.0); Carbon Dioxide 27.6 mmol/L (21.0-32.0); Chloride 105 mmol/L (98-108); Creatinine, Serum 1.53 mg/dL (0.70-1.20); EST Glomerular Filtration Rate 35 (>60); Glucose 107 mg/dL (70-99); Iron 73 ug/dL (50-170); Phosphorus 2.4 mg/dL (2.7-4.5); Potassium 4.4 mmol/L (3.3-5.1); Sodium Level 142 mmol/L (133-145); Thyroid Stim Hormone (TSH) 0.213 uIU/mL (0.300-4.200)
[2024-06-16 20:39] LABS: Cholesterol 122 mg/dL (<=200); High Density Lipoprotein 59 mg/dL; Low Density Lipoprotein Calc. 37 mg/dL; Triglycerides 130 mg/dL; Very Low Density Lipoprotein 26 mg/dL (5-40); cholesterol:hdl ratio screen 2.06
[2024-06-18 14:08] LABS: Free Kappa Light Chains 51.7 mg/L (3.3-19.4); Free Lambda Light Chains 44.7 mg/L (5.7-26.3)
== END | disposition home or self-care (01) ==
LOC: MTLAB 15:27
PROVIDERS: PCP Preventive Medicine Occupational Medicine; Referring Provider Preventive Medicine Occupational Medicine; Visit Provider Preventive Medicine Occupational Medicine
DX: E03.9 Hypothyroidism, unspecified (principal); N18.32 Chronic kidney disease, stage 3b; I12.9 Hypertensive chronic kidney disease with stage 1 through stage 4 chronic kidney disease, or unspecified chronic kidney disease; D50.9 Iron deficiency anemia, unspecified; E78.5 Hyperlipidemia, unspecified
CPT/HCPCS: 36415; 80061; 80069; 82043; 82570; 83540; 83883; 84443; 85027

== ENCOUNTER → 2025-02-23 | Outpatient (CLI) | payer MEDICARE, SELFPAY ==
[2025-02-23 14:23] LABS: Ionized Calcium Order ORDER TUBE
[2025-02-23 15:50] LABS: AST(SGOT) 28 U/L (<=31); Alanine Aminotransfer ALT/SGPT 21 U/L (<=34); Albumin, Serum 3.5 g/dL (3.4-4.8); Alkaline Phosphatase 91 U/L (35-104); Anion Gap 9 (5-15); BUN 20 mg/dL (4-19); BUN/Creat Ratio 11.8 RATIO (10-20); Calcium,Total 10.9 mg/dL (7.6-11.0); Carbon Dioxide 27.8 mmol/L (21.0-32.0); Chloride 105 mmol/L (98-108); Globulin 3.3 g/dL (2.2-4.2); Glucose 164 mg/dL (70-99); Potassium 4.6 mmol/L (3.3-5.1)
[2025-02-23 16:27] LABS: PTHIN 125 pg/mL (11-61)
== END | disposition home or self-care (01) ==
LOC: MTLAB 12:58
PROVIDERS: PCP Preventive Medicine Occupational Medicine; Referring Provider Internal Medicine Endocrinology, Diabetes & Metabolism; Visit Provider Internal Medicine Endocrinology, Diabetes & Metabolism
DX: E66.01 Morbid (severe) obesity due to excess calories (principal); E11.319 Type 2 diabetes mellitus with unspecified diabetic retinopathy without macular edema; E11.40 Type 2 diabetes mellitus with diabetic neuropathy, unspecified; E11.22 Type 2 diabetes mellitus with diabetic chronic kidney disease; E83.52 Hypercalcemia
CPT/HCPCS: 36415; 80053; 82330; 83970; 84100